=== PATIENT | female | born 2000 | race Caucasian/White ===

== ENCOUNTER 2019-04-17 12:38 | Emergency (ER) | payer OTHER ==
[2019-04-17 12:54] VITALS: TEMP 102
[2019-04-17] MEDS ORDERED: IBUPROFEN 600 MG TAB PO STA (13:04)
[2019-04-17] MEDS ORDERED: ACETAMINOPHEN TAB 325 MG TAB PO STA (13:04)
--- NOTE | 2019-04-17 13:28 | XR ---
EXAMINATION TYPE: XR chest 2V DATE OF EXAM: 04/17/2019 COMPARISON: NONE HISTORY: Fever cough and congestion. TECHNIQUE: Frontal and lateral views of the chest are obtained. FINDINGS: Low lung volumes are present. There is no focal air space opacity, pleural effusion, or pn eumothorax seen. The cardiac silhouette size is within normal limits. The osseous structures are i ntact. IMPRESSION: No suspicious acute infiltrate.
--- NOTE | 2019-04-17 13:54 | ED ---
Fever HPI - General Chief Complaint: Fever Stated Complaint: fever, chest congestion Time Seen by Provider: 04/17/19 13:01 Source: patient Mode of arrival: ambulatory Limitations: no limitations - History of Present Illness Initial Comments: 18-year-old female presenting today for chief complaint of cough congestion and fever. Patient states that she feels like her chest is congested. She denies shortness of breath or chest pressure or pain. Patient denies any dizziness or syncope. Patient states she has had a runny nose, sore throat and body aches. Patient is consented influenza presents emergency department for evaluation. Patient has a dysuria urgency frequency. Patient denies stating she is on the Depo-Provera shot. Patient denies neck stiffness, photophobia, headahces. Remaining ROS (-). Upon arrival patient appears well there is no signs of acute distress. - Related Data Previous Rx's Medication Instructions Recorded Oseltamivir [Tamiflu] 75 mg PO Q12HR 5 Days #10 cap 04/17/19 Allergies Allergy/AdvReac Type Severity Reaction Status Date / Time No Known Allergies Allergy Verified 04/17/19 12:54 Review of Systems ROS Statement: Those systems with pertinent positive or pertinent negative responses have been documented in the HPI. ROS Other: All systems not noted in ROS Statement are negative. Past Medical History Past Medical History: No Reported History History of Any Multi-Drug Resistant Organisms: None Reported Additional Past Surgical History / Comment(s): nose Past Psychological History: ADD/ADHD Smoking Status: Never smoker Past Alcohol Use History: None Reported Past Drug Use History: None Reported General Exam - General Exam Comments Initial Comments: General: The patient is awake and alert, in no distress, and does not appear acutely ill. Eye: +3 mm pupils are equal, round and reactive to light, extra-ocular movements are intact. No nystagmus. There is normal conjunctiva bilaterally. No signs of icterus. No photophobia Ears, nose, mouth and throat: There are moist mucous membranes and no oral lesions. Oropharynx was not erythematous there is no tonsillar enlargement exudates or lesions. Uvula midline. Tympanic membranes are not erythematous or is no effusions bulging or retraction. No tenderness to palpation of the mastoid. No anterior cervical lymphadenopathy. Rhinorrhea, clear and bilateral nares. No tripoding, no drooling. Neck: The neck is supple, there is no tenderness or JVD. No nuchal rigidity Cardiovascular: There is a regular rate and rhythm. No murmur, rub or gallop is appreciated. Respiratory: Lungs are clear to auscultation, respirations are non-labored, breath sounds are equal. No wheezes, stridor, rales, or rhonchi. No retractions or abdominal breathing. Gastrointestinal: Soft, non-distended, non-tender abdomen without masses or organomegaly noted. There is no rebound or guarding present. Bowel sounds are unremarkable. Musculoskeletal: Normal ROM, no tenderness. Strength 5/5. Sensation intact. Radial pulses equal bilaterally 2+. Neurological: A&O x 3. CN II-XII intact grossly, There are no obvious motor or sensory deficits. Coordination appears grossly intact. Speech appears normal, no muffling. Skin: Skin is warm and dry and no rashes or lesions are noted. No extremity edema Psychiatric: Cooperative Limitations: no limitations Course Vital Signs 04/17/19 04/17/19 12:50 14:25 Temperature 102.0 F H Pulse Rate 134 H 126 H Respiratory 22 18 Rate Blood Pressure 139/83 133/62 O2 Sat by Pulse 97 99 Oximetry Medical Decision Making - Medical Decision Making 18-year-old female presenting today for chief complaint of body ache fevers cough congestion. Influenza positive. Chest x-ray clear focal infiltrates lung s are clear to auscultation patient does not appear respiratory distress. Patient states her heart rate is always greater than 100 due to her ADHD medication. Patient does have some elevation of heart rate which I feel is in part due to patient's high temperature. Patient is given antipyretics in the emergency department. Patient states she is feeling better after medication, ibuprofen and discussed importance of fluid intake return from x-ray shortness of breath, difficulty in breathing. patient verbalized understanding and was discharged appearing well with tamiflu. - Lab Data Lab Results 04/17/19 Range/Units 12:55 Influenza Type A RNA Not Detected (Not Detectd) Influenza Type B (PCR) Detected H (Not Detectd) Disposition Clinical Impression: Influenza B, Fever, Cough Disposition: HOME SELF-CARE Condition: Good Instructions (If sedation given, give patient instructions): Influenza in Children (ED), Fever in Adults (ED) Additional Instructions: Please use medication as discussed. Please follow-up with family doctor in the next 2 days. Please return to emergency room if the symptoms increase or worsen or for any other concerns. Prescriptions: Oseltamivir [Tamiflu] 75 mg PO Q12HR 5 Days #10 cap Is patient prescribed a controlled substance at d/c from ED?: No Referrals: Ilda Cornell MD [Primary Care Provider] - 1-2 days Time of Disposition: 13:54
[2019-04-17 14:26] VITALS: BP 133/62; PULSE 126; RESP 18
== END 2019-04-17 14:32 | disposition home or self-care (01) ==
LOC: EC 12:38
DX: J10.1 Influenza due to other identified influenza virus with other respiratory manifestations (principal); F90.9 Attention-deficit hyperactivity disorder, unspecified type
CPT/HCPCS: 71046; 87502; 99283

== ENCOUNTER 2019-11-11 14:41 | Emergency (ER) | payer OTHER ==
[2019-11-11 14:45] VITALS: BP 136/81; PULSE 125; RESP 18; TEMP 98.7
--- NOTE | 2019-11-11 14:55 | ED ---
General Adult HPI - General Chief complaint: Extremity Injury, Upper Stated complaint: LT wrist injury Time Seen by Provider: 11/11/19 14:47 Source: patient Mode of arrival: ambulatory Limitations: no limitations - History of Present Illness Initial comments: Dictation was produced using [employer] dictation software. please excuse any grammatical, word or spelling errors. This patient was cared for during a federal and state declared state of emergency secondary to Covid 19 Chief Complaint: 18-year-old female presents with left wrist pain. History of Present Illness: 18-year-old female presents with left wrist pain. Patient states she's had left wrist pain in the past that was secondary to tendinitis. She had to wear a wrist splint. The last several days she's been noticing wrist pain over the lateral aspect of the left wrist. Patient works as a ford and rolls though very often. She states wrist hurts whenever she is fo rced to rolled dough. 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 Any trauma to the wrist. She states she's been getting on the strange bruises to the area. She denies any bruising or rest of her body. The ROS documented in this emergency department record has been reviewed and confirmed by me. Those systems with pertinent positive or negative responses have been documented in the HPI. All other systems are other negative and/or noncontributory. PHYSICAL EXAM: General Impression: Alert and oriented x3, not in acute distress HEENT: Normocephalic atraumatic, extra-ocular movements intact, pupils equal and reactive to light bilaterally, mucous membranes moist. Cardiovascular: Heart regular rate and rhythm Chest: Able to complete full sentences, no retractions, no tachypnea Abdomen: abdomen soft, non-tender, non-distended, no organomegaly Musculoskeletal: Pulses present and equal in all extremities, no peripheral edema Left wrist: Atraumatic, no ecchymoses, tenderness over the lateral aspect of the left wrist Motor: no focal deficits noted Neurological: CN II-XII grossly intact, no focal motor or sensory deficits noted Skin: Intact with no visualized rashes Psych: Normal affect and mood ED course: 18-year-old female presents with clinical presentation consistent with de Quervain's tenosynovitis. Vital signs upon arrival are within acceptable limits. X-rays unremarkable. Patient advised to continue using her left wrist splint that was provided to her. She states she still has at home. Rest ice compress the area. Patient's given a follow-up with orthopedic surgery. - Related Data Previous Rx's Medication Instructions Recorded Oseltamivir [Tamiflu] 75 mg PO Q12HR 5 Days #10 cap 04/17/19 Allergies Allergy/AdvReac Type Severity Reaction Status Date / Time No Known Allergies Allergy Verified 11/11/19 14:45 Review of Systems ROS Statement: Those systems with pertinent positive or pertinent negative responses have been documented in the HPI. ROS Other: All systems not noted in ROS Statement are negative. Past Medical History Past Medical History: No Reported History History of Any Multi-Drug Resistant Organisms: None Reported Additional Past Surgical History / Comment(s): nose Past Psychological History: ADD/ADHD Smoking Status: Former smoker Past Alcohol Use History: None Reported Past Drug Use History: None Reported General Exam Limitations: no limitations Course Vital Signs 11/11/19 14:43 Temperature 98.7 F Pulse Rate 125 H Respiratory 18 Rate Blood Pressure 136/81 O2 Sat by Pulse 98 Oximetry Disposition Clinical Impression: Wrist pain Disposition: HOME SELF-CARE Instructions (If sedation given, give patient instructions): Wrist Injury (ED) Is patient prescribed a controlled substance at d/c from ED?: No Referrals: Clarisa Braun DO [Doctor of Osteopathic Medicine] - 1-2 days Time of Disposition: 15:28
--- NOTE | 2019-11-11 15:22 | XR ---
EXAMINATION TYPE: XR wrist complete LT DATE OF EXAM: 11/11/2019 COMPARISON: NONE HISTORY: Wrist pain TECHNIQUE: 4 views FINDINGS: Carpal bones are intact. I see no fracture nor dislocation. Scaphoid is intact. Metacarpals are intact. IMPRESSION: Negative left wrist exam.
== END 2019-11-11 15:30 | disposition home or self-care (01) ==
LOC: EC 14:41
DX: M25.532 Pain in left wrist (principal); Z87.891 Personal history of nicotine dependence
CPT/HCPCS: 99283

== ENCOUNTER 2019-12-05 09:00 | Emergency (ER) | payer OTHER ==
[2019-12-05] MEDS ORDERED: ACETAMINOPHEN TAB 325 MG TAB PO STA (09:39)
[2019-12-05 10:17] LABS: Basophils # (A) 0.1 k/uL (0-0.2); Basophils % (A) 1 %; Eosinophils # (A) 0.3 k/uL (0-0.7); Eosinophils % (A) 4 %; HCT 44.2 % (34.0-46.0); HGB 14.3 gm/dL (11.4-16.0); Lymphocytes % (A) 33 %; MCH 29.2 pg (25.0-35.0); MCHC 32.4 g/dL (31.0-37.0); MCV 90.1 fL (80.0-100.0); Mean Platelet Volume 6.9; Monocytes # (A) 0.4 k/uL (0-1.0); Monocytes % (A) 4 %; Neutrophils # (A) 5.3 k/uL (1.3-7.7); Neutrophils % (A) 57 %; Platelet Count 460 k/uL (150-450); RDW 13.1 % (11.5-15.5); WBC 9.3 k/uL (4.0-11.0)
--- NOTE | 2019-12-05 10:20 | XR ---
EXAMINATION TYPE: XR chest 2V DATE OF EXAM: 12/05/2019 COMPARISON: 04/17/2019 INDICATION: Fever nausea TECHNIQUE: Frontal and lateral views of the chest are obtained. FINDINGS: The heart size is normal. The pulmonary vasculature is normal. The lungs are clear. IMPRESSION: 1. No acute pulmonary process.
[2019-12-05 10:25] LABS: Appearance,Urine Cloudy (Clear); Bacteria,Urine Occasional /hpf; Bilirubin,Urine Negative (Negative); Blood,Urine Negative (Negative); Color,Urine Yellow; Glucose,Urine (UA) Negative (Negative); Ketones,Urine Negative (Negative); Leukocyte Esterase,Urine Negative (Negative); Mucus,Urine Few /hpf; Nitrite,Urine Negative (Negative); Protein,Urine Negative (Negative); Specific Gravity,Urine 1.022 (1.001-1.035); Squamous Epithelial Cell,Urine 14 /hpf (0-4); Urobilinogen,Urine <2.0 mg/dL (<2.0); WBC,Urine 1 /hpf (0-5)
[2019-12-05 10:31] LABS: ALT 17 U/L (4-34); AST 20 U/L (14-36); African American GFR (CKD) >90 (>60 ml/min/1.73 sqM); Albumin 4.3 g/dL (3.5-5.0); Alkaline Phosphatase 82 U/L (38-126); Anion Gap 9 mmol/L; Blood Urea Nitrogen 10 mg/dL (7-17); Calcium 9.3 mg/dL (8.4-10.2); Carbon Dioxide 22 mmol/L (22-30); Chloride 108 mmol/L (98-107); Glucose 97 mg/dL (74-99); Non-African American GFR(CKD) >90 (>60 ml/min/1.73 sqM); Potassium 4.1 mmol/L (3.5-5.1); Sodium 139 mmol/L (137-145); Total Bilirubin 0.6 mg/dL (0.2-1.3); Total Protein 7.3 g/dL (6.3-8.2)
[2019-12-05 10:55] VITALS: RESP 14
--- NOTE | 2019-12-05 11:10 | ED ---
Nausea/Vomiting/Diarrhea HPI - General Chief complaint: Nausea/Vomiting/Diarrhea Stated complaint: Nausea,Diziness Time Seen by Provider: 12/05/19 09:05 Source: patient Mode of arrival: ambulatory Limitations: no limitations - History of Present Illness Initial comments: 18-year-old female presented for multiple complaints. Patient states that she has had nausea, body aches and sore throat today. She states she did not know she had a fever. Patient states that yesterday she had an episode where she felt slightly dizzy and she states she had headache on and off throughout the day she denies any neck stiffness. Patient denies any visual changes weakness of the upper or lower extremities or sensation deficits denies any changes in her gait. Patient states that she also wanted to mention that she seems to be bruising more easily she states after hitting her extremities accidentally. Patient denies any family hx of bleeding disorders, known history, denies bloody stool, denies gastric bypass surgery. Patient states she does not currently h ave any bruises to show. Patient denies additional complaints. Denies chest pain, SOB, presyncope, syncope, cough. Patient appears well on arrival in no acute distress. She is febrile. - Related Data Home Medications Medication Instructions Recorded Confirmed Atomoxetine HCl [Strattera] 80 mg PO QAM 12/05/19 12/05/19 Cetirizine HCl 10 mg PO DAILY 12/05/19 12/05/19 Doxylamine Succinate [Unisom] 25 mg PO HS 12/05/19 12/05/19 Medroxyprogesterone Acetate 150 mg IM Q90D 12/05/19 12/05/19 [Depo-Provera] Montelukast [Singulair] 10 mg PO HS 12/05/19 12/05/19 valACYclovir HCL 500 mg PO DAILY 12/05/19 12/05/19 Allergies Allergy/AdvReac Type Severity Reaction Status Date / Time bee pollen Allergy Unknown Verified 12/05/19 10:35 bee venom protein (honey bee) Allergy Unknown Verified 12/05/19 10:35 honey Allergy Nausea & Verified 12/05/19 10:35 Vomiting latex Allergy Rash/Hives Verified 12/05/19 10:35 lavender (Lavandula Allergy Rash/Hives Verified 12/05/19 10:35 angustifolia) Review of Systems ROS Statement: Those systems with pertinent positive or pertinent negative responses have been documented in the HPI. ROS Other: All systems not noted in ROS Statement are negative. Past Medical History Past Medical History: No Reported History History of Any Multi-Drug Resistant Organisms: None Reported Additional Past Surgical History / Comment(s): nose Past Psychological History: ADD/ADHD Smoking Status: Former smoker Past Alcohol Use History: None Reported Past Drug Use History: None Reported General Exam - General Exam Comments Initial Comments: General: The patient is awake and alert, in no distress Eye: +3 mm pupils are equal, round and reactive to light, extra-ocular movements are intact. No nystagmus. There is normal conjunctiva bilaterally. No signs of icterus. Ears, nose, mouth and throat: There are moist mucous membranes and no oral lesions. Oropharynx erythematous uvula midline no tonsillar enlargement or exudates or lesions Neck: The neck is supple, there is no tenderness or JVD. Cardiovascular: There is a regular rate and rhythm. No murmur, rub or gallop is appreciated. Respiratory: Lungs are clear to auscultation, respirations are non-labored, breath sounds are equal. No wheezes, stridor, rales, or rhonchi. Gastrointestinal: Soft, non-distended, non-tender abdomen without masses or organomegaly noted. There is no rebound or guarding present Musculoskeletal: Normal ROM, no tenderness. Strength 5/5. Sensation intact. Radial pulses equal bilaterally 2+. Neurological: A&O x 3. CN II-XII intact grossly, There are no obvious motor or sensory deficits. Coordination appears grossly intact. Speech is normal. Skin: Skin is warm and dry and no rashes or lesions are noted. NO eechymosis appreciated. Psychiatric: Cooperative, appropriate mood & affect, normal judgment. Limitations: no limitations Course Vital Signs 12/05/19 12/05/19 12/05/19 09:01 10:54 11:26 Temperature 101.0 F H 98.6 F 98.1 F Pulse Rate 124 H 107 H 106 H Respiratory 18 14 14 Rate Blood Pressure 137/96 136/84 136/82 O2 Sat by Pulse 99 98 98 Oximetry Medical Decision Making - Medical Decision Making No current EDDY, or dizziness. Patient has no focal neurological deficits. Patient has fever, sore throat. Concern for covid. Covid pending. CXR clear. Lungs clear. UA unremarkable. I recommended outpatient vitamin testing and f/u with [facility] for bruising. Patient is to self quarantine until symtoms/fever free. patient case discussed with Dr. Banks who is agreeable to care plan. - Lab Data Result diagrams: 12/05/19 09:52 12/05/19 09:52 Lab Results 12/05/19 12/05/19 12/05/19 Range/Units 09:52 09:52 09:52 WBC 9.3 (4.0-11.0) k/uL RBC 4.90 (3.80-5.40) m/uL Hgb 14.3 (11.4-16.0) gm/dL Hct 44.2 (34.0-46.0) % MCV 90.1 (80.0-100.0) fL MCH 29.2 (25.0-35.0) pg MCHC 32.4 (31.0-37.0) g/dL RDW 13.1 (11.5-15.5) % Plt Count 460 H (150-450) k/uL Neutrophils % 57 % Lymphocytes % 33 % Monocytes % 4 % Eosinophils % 4 % Basophils % 1 % Neutrophils # 5.3 (1.3-7.7) k/uL Lymphocytes # 3.0 (1.0-4.8) k/uL Monocytes # 0.4 (0-1.0) k/uL Eosinophils # 0.3 (0-0.7) k/uL Basophils # 0.1 (0-0.2) k/uL Sodium 139 (137-145) mmol/L Potassium 4.1 (3.5-5.1) mmol/L Chloride 108 H (98-107) mmol/L Carbon Dioxide 22 (22-30) mmol/L Anion Gap 9 mmol/L BUN 10 (7-17) mg/dL Creatinine 0.67 (0.52-1.04) mg/dL Est GFR (CKD-EPI)AfAm >90 (>60 ml/min/1.73 sqM) Est GFR (CKD-EPI)NonAf >90 (>60 ml/min/1.73 sqM) Glucose 97 (74-99) mg/dL Calcium 9.3 (8.4-10.2) mg/dL Total Bilirubin 0.6 (0.2-1.3) mg/dL AST 20 (14-36) U/L ALT 17 (4-34) U/L Alkaline Phosphatase 82 (38-126) U/L Total Protein 7.3 (6.3-8.2) g/dL Albumin 4.3 (3.5-5.0) g/dL Urine Color Urine Appearance (Clear) Urine pH (5.0-8.0) Ur Specific [place] (1.001-1.035) Urine Protein (Negative) Urine Glucose (UA) (Negative) Urine Ketones (Negative) Urine Blood (Negative) Urine Nitrite (Negative) Urine Bilirubin (Negative) Urine Urobilinogen (<2.0) mg/dL Ur Leukocyte Esterase (Negative) Urine WBC (0-5) /hpf Ur Squamous Epith Cells (0-4) /hpf Urine Bacteria (None) /hpf Urine Mucus (None) /hpf Urine HCG, Qual (Not Detectd) Group A Strep Rapid Negative (Negative) 12/05/19 12/05/19 Range/Units 09:52 09:52 WBC (4.0-11.0) k/uL RBC (3.80-5.40) m/uL Hgb (11.4-16.0) gm/dL Hct (34.0-46.0) % MCV (80.0-100.0) fL MCH (25.0-35.0) pg MCHC (31.0-37.0) g/dL RDW (11.5-15.5) % Plt Count (150-450) k/uL Neutrophils % % Lymphocytes % % Monocytes % % Eosinophils % % Basophils % % Neutrophils # (1.3-7.7) k/uL Lymphocytes # (1.0-4.8) k/uL Monocytes # (0-1.0) k/uL Eosinophils # (0-0.7) k/uL Basophils # (0-0.2) k/uL Sodium (137-145) mmol/L Potassium (3.5-5.1) mmol/L Chloride (98-107) mmol/L Carbon Dioxide (22-30) mmol/L Anion Gap mmol/L BUN (7-17) mg/dL Creatinine (0.52-1.04) mg/dL Est GFR (CKD-EPI)AfAm (>60 ml/min/1.73 sqM) Est GFR (CKD-EPI)NonAf (>60 ml/min/1.73 sqM) Glucose (74-99) mg/dL Calcium (8.4-10.2) mg/dL Total Bilirubin (0.2-1.3) mg/dL AST (14-36) U/L ALT (4-34) U/L Alkaline Phosphatase (38-126) U/L Total Protein (6.3-8.2) g/dL Albumin (3.5-5.0) g/dL Urine Color Yellow Urine Appearance Cloudy H (Clear) Urine pH 8.0 (5.0-8.0) Ur Specific [place] 1.022 (1.001-1.035) Urine Protein Negative (Negative) Urine Glucose (UA) Negative (Negative) Urine Ketones Negative (Negative) Urine Blood Negative (Negative) Urine Nitrite Negative (Negative) Urine Bilirubin Negative (Negative) Urine Urobilinogen <2.0 (<2.0) mg/dL Ur Leukocyte Esterase Negative (Negative) Urine WBC 1 (0-5) /hpf Ur Squamous Epith Cells 14 H (0-4) /hpf Urine Bacteria Occasional H (None) /hpf Urine Mucus Few H (None) /hpf Urine HCG, Qual Not Detected (Not Detectd) Group A Strep Rapid (Negative) Disposition Clinical Impression: Body aches, Nausea, Sore throat, Headache, Easy bruising, Fever Disposition: HOME SELF-CARE Condition: Good Additional Instructions: Please use medication as discussed. Please follow-up with family doctor in the next 2 days.. Please return to emergency room if the symptoms increase or worsen or for any other concerns. Is patient prescribed a controlled substance at d/c from ED?: No Referrals: Ilda Cornell MD [Primary Care Provider] - 1-2 days Time of Disposition: 11:09
[2019-12-05 11:32] VITALS: BP 136/82; PULSE 106; TEMP 98.1
== END 2019-12-05 11:33 | disposition home or self-care (01) ==
LOC: EC 09:00
DX: J02.9 Acute pharyngitis, unspecified (principal); R23.3 Spontaneous ecchymoses; R42 Dizziness and giddiness; F90.9 Attention-deficit hyperactivity disorder, unspecified type; Z79.899 Other long term (current) drug therapy; Z91.030 Bee allergy status; Z91.040 Latex allergy status; Z91.048 Other nonmedicinal substance allergy status; Z20.828 Contact with and (suspected) exposure to other viral communicable diseases; Z87.891 Personal history of nicotine dependence
CPT/HCPCS: 36415; 80053; 85025; 81001; 81025; 87081; 87430; 71046; 99284; U0003